=== PATIENT | female | born 1980 | race Caucasian/White ===

== ENCOUNTER → 2017-12-16 | Outpatient (CLI) | payer MEDICAID ==
[~2017-12-16] MED LIST: CYCL-1 PO; DIGO125T PO; HYDR-3965 PO; LOP25T PO; LORA1TAB PO; MORP15TA60 PO; WEL75T PO; ZOL50T PO
== END | disposition home or self-care (01) ==
LOC: RAD 08:52
PROVIDERS: ATTEND Registered Nurse Community Health
DX: Z65.5 Exposure to disaster, war and other hostilities (principal); Z86.69 Personal history of other diseases of the nervous system and sense organs; Z87.891 Personal history of nicotine dependence; Z79.899 Other long term (current) drug therapy; I10 Essential (primary) hypertension; Z98.84 Bariatric surgery status; Z90.711 Acquired absence of uterus with remaining cervical stump; E11.9 Type 2 diabetes mellitus without complications
CPT/HCPCS: 95816